=== PATIENT | male | born 1950 | race Caucasian/White ===

== ENCOUNTER 2022-01-12 12:30 | Outpatient (CLI) | payer MEDICARE, OTHER ==
[~2022-01-12 12:30] MED LIST: Iopamidol-370 76% 500 ML 1 ML ONE
== END 2022-01-12 12:31 | disposition home or self-care (01) ==
LOC: BICCT 12:30
PROVIDERS: ATTEND Physician Assistant Medical
DX: R19.7 Diarrhea, unspecified (principal); K62.89 Other specified diseases of anus and rectum; K57.30 Diverticulosis of large intestine without perforation or abscess without bleeding; K86.2 Cyst of pancreas; N40.0 Benign prostatic hyperplasia without lower urinary tract symptoms; K63.89 Other specified diseases of intestine
CPT/HCPCS: 74177; 82565; Q9967

== ENCOUNTER 2022-01-26 14:00 | Inpatient (IN) | payer MEDICARE, OTHER ==
[2022-01-28] MEDS ORDERED: SUGAMMADEX SODIUM 200 MG/2 ML VIAL ONE (12:40)
[2022-01-28] MEDS ORDERED: fentaNYL Citrate/PF 100 MCG/2 ML SYRINGE ONE ×3 (12:40→16:36)
[2022-01-28] MEDS ORDERED: Bupivacaine/Epinephrine 0.25% 30 ML VIAL ONE (12:48)
[2022-01-28] MEDS ORDERED: cefOXitin 2 GM VIAL ONE ×2 (12:55→15:06)
[2022-01-28] MEDS ORDERED: Sodium Chloride 0.9% 100 ML ONE (12:55)
[2022-01-28] MEDS ORDERED: Rocuronium Bromide 10 MG/ML (10ML VIAL) ONE (13:16)
[2022-01-28] MEDS ORDERED: Dexamethasone 20 MG/5 ML VIAL ONE (13:16)
[2022-01-28] MEDS ORDERED: Ondansetron PF 4 MG/2 ML Vial ONE (13:16)
[2022-01-28] MEDS ORDERED: PROPOFOL 200 MG/20 ML VIAL ONE (13:16)
[2022-01-28] MEDS ORDERED: Glycopyrrolate 0.2 MG/ML 5 ML SYRINGE ONE (13:16)
[2022-01-28] MEDS ORDERED: Neostigmine Methylsulfate 3 MG/3 ML SYRINGE ONE (13:16)
[2022-01-28] MEDS ORDERED: Lidocaine 1% PF 5 ML VIAL ONE (13:16)
[2022-01-28] MEDS ORDERED: Phenylephrine 10 MG/ML VIAL ONE (13:16)
[2022-01-28] MEDS ORDERED: Bupivacaine HCl 0.5%/Epinephrine 1:200,000/PF 30 ml Vial ONE (15:50)
[2022-01-28] MEDS ORDERED: Promethazine HCl 25 MG/ML VIAL IM PRN ×2 (16:03→17:27)
[2022-01-28] MEDS ORDERED: Fentanyl 100 MCG/2 ML VIAL SLOW IVP PRN ×2 (16:03→17:32)
[2022-01-28] MEDS ORDERED: Ondansetron PF 4 MG/2 ML Vial IVP PRN ×2 (16:03→17:27)
[2022-01-28] MEDS ORDERED: hydrALAZINE 20 MG/ML VIAL SLOW IVP PRN (16:03)
[2022-01-28] MEDS ORDERED: HYDROmorphone 0.5 MG/0.5 ML SYRINGE ONE ×2 (16:50→17:00)
[2022-01-28] MEDS ORDERED: diphenhydrAMINE 25 MG CAP PO PRN (17:27)
[2022-01-28] MEDS ORDERED: Naloxone HCl 0.4 mg/ml Vial IV PRN (17:27)
[2022-01-28] MEDS ORDERED: fentaNYL Citrate/PF 2,000 MCG in Sodium Chloride 0.9% 60 ML IV PRN (17:27)
[2022-01-28] MEDS ORDERED: diphenhydrAMINE 50 MG/ML VIAL IVP PRN (17:27)
[2022-01-28] MEDS ORDERED: diphenhydrAMINE 50 MG/ML VIAL IM PRN (17:27)
[2022-01-28] MEDS ORDERED: HYDROcodone/Acetaminophen 7.5/325 mg Tablet PO PRN (17:30)
[2022-01-28] MEDS ORDERED: Communication Order-Pharmacy FS SCH (17:30)
[2022-01-28] MEDS: D5 1/2 NS w/20 mEq KCL 1,000 ML IV SCH (18:49)
[2022-01-28 20:32] VITALS: BMI 20.8
[2022-01-28] MEDS: Famotidine/PF 20 mg/2ml Vial SLOW IVP SCH (21:28)
[2022-01-28] MEDS: Famotidine 20 MG TAB PO SCH (21:58)
[2022-01-28] MEDS: cefOXitin Sodium 1 GM in Sodium Chloride 0.9% 100 ML IVPB SCH (23:47)
[2022-01-29] MEDS: D5 1/2 NS w/20 mEq KCL 1,000 ML IV SCH ×3 (02:25→17:27)
[2022-01-29 07:28] LABS: #Lymphocytes 0.8 thou/uL (1.20-3.40); #Monocytes 1.1 thou/uL (0.11-0.59); #Neutrophils 9.2 thou/uL (1.40-6.50); %Basophils 0.2 % (0.0-1.0); %Eosinophils 0.1 % (0.0-10.0); %Lymphocytes 6.8 % (21.0-51.0); %Neutrophils 82.9 % (42.0-75.0); Hemoglobin 10.7 g/dL (14.0-18.0); Mean Corpuscular HGB CONC 32.4 g/dL (32.0-36.0); Mean Corpuscular Hemoglobin 27.6 pg (27.0-31.0); Mean Corpuscular Volume 85.3 fL (78.0-98.0); Mean Platelet Volume 8.1 fL (7.4-10.4); Platelet Count 190 thou/uL (130-400); RBC Distribution Width 12.8 % (11.5-14.5); Red Blood Cell (RBC) Count 3.89 mill/uL (4.70-6.10); White Blood Cell (WBC) Count 11.1 thou/uL (4.8-10.8)
[2022-01-29 07:50] LABS: Anion Gap 12 mmol/L (10-20); BUN (Urea Nitrogen) 15 mg/dL (8.4-25.7); Calc. Creatinine Clearance 80 mL/min (70-130); Calcium 7.7 mg/dL (7.8-10.44); Carbon Dioxide 26 mmol/L (23-31); Chloride 102 mmol/L (98-107); Estimated GFR 97; Glucose 164 mg/dL (80-115); Potassium 3.3 mmol/L (3.5-5.1); Sodium 137 mmol/L (136-145)
[2022-01-29] MEDS: cefOXitin Sodium 1 GM in Sodium Chloride 0.9% 100 ML IVPB SCH (09:07)
[2022-01-29] MEDS: Lisinopril/Hydrochlorothiazide 20 mg/12.5 mg Tablet PO SCH (09:07)
[2022-01-29] MEDS: Enoxaparin Sodium 40 MG/0.4 ML SYRINGE SC SCH (09:07)
[2022-01-29] MEDS: Famotidine 20 MG TAB PO SCH ×2 (09:08→20:13)
[2022-01-29] MEDS: Famotidine/PF 20 mg/2ml Vial SLOW IVP SCH ×2 (09:08→20:25)
[2022-01-29] MEDS ORDERED: Fentanyl 100 MCG/2 ML VIAL SLOW IVP PRN (14:11)
[2022-01-29] MEDS ORDERED: Acetaminophen 325 MG TAB PO PRN (16:01)
[2022-01-29] MEDS ORDERED: HYDROcodone/Acetaminophen 7.5/325 mg Tablet PO PRN (16:01)
[2022-01-29] MEDS: HYDROcodone/Acetaminophen 7.5/325 mg Tablet PO PRN ×2 (17:27→23:18)
[2022-01-29] MEDS ORDERED: Tamsulosin HCl 0.4 MG CAP PO SCH (19:45)
[2022-01-30] MEDS: HYDROcodone/Acetaminophen 7.5/325 mg Tablet PO PRN ×4 (05:10→23:13)
[2022-01-30] MEDS: D5 1/2 NS w/20 mEq KCL 1,000 ML IV SCH (05:11)
[2022-01-30] MEDS: Enoxaparin Sodium 40 MG/0.4 ML SYRINGE SC SCH (08:54)
[2022-01-30] MEDS: Famotidine/PF 20 mg/2ml Vial SLOW IVP SCH ×2 (08:54→20:15)
[2022-01-30] MEDS: Famotidine 20 MG TAB PO SCH ×2 (08:54→20:15)
[2022-01-30] MEDS: Lisinopril/Hydrochlorothiazide 20 mg/12.5 mg Tablet PO SCH (08:54)
[2022-01-30] MEDS: Tamsulosin HCl 0.4 MG CAP PO SCH (08:55)
[2022-01-30] MEDS ORDERED: Ibuprofen 100 MG/5 ML UDCUP PO PRN (10:18)
[2022-01-31] MEDS: HYDROcodone/Acetaminophen 7.5/325 mg Tablet PO PRN ×2 (05:05→11:26)
[2022-01-31 05:50] LABS: #Eosinphils 0.2 thou/uL (0.0-0.7); #Lymphocytes 0.9 thou/uL (1.20-3.40); #Monocytes 0.7 thou/uL (0.11-0.59); #Neutrophils 5.4 thou/uL (1.40-6.50); %Basophils 0.3 % (0.0-1.0); %Eosinophils 2.4 % (0.0-10.0); %Lymphocytes 12.4 % (21.0-51.0); %Monocytes 9.3 % (0.0-10.0); %Neutrophils 75.7 % (42.0-75.0); Hemoglobin 11.1 g/dL (14.0-18.0); Mean Corpuscular HGB CONC 33.3 g/dL (32.0-36.0); Mean Corpuscular Volume 84.3 fL (78.0-98.0); Mean Platelet Volume 8.3 fL (7.4-10.4); Platelet Count 169 thou/uL (130-400); RBC Distribution Width 12.7 % (11.5-14.5); Red Blood Cell (RBC) Count 3.97 mill/uL (4.70-6.10); White Blood Cell (WBC) Count 7.1 thou/uL (4.8-10.8)
[2022-01-31 06:26] LABS: Anion Gap 11 mmol/L (10-20); BUN (Urea Nitrogen) 5 mg/dL (8.4-25.7); Calc. Creatinine Clearance 90 mL/min (70-130); Calcium 8.3 mg/dL (7.8-10.44); Carbon Dioxide 30 mmol/L (23-31); Chloride 99 mmol/L (98-107); Estimated GFR 101; Glucose 110 mg/dL (80-115); Magnesium 1.6 mg/dL (1.6-2.6); Phosphorus 2.5 mg/dL (2.3-4.7); Potassium 3.1 mmol/L (3.5-5.1); Sodium 137 mmol/L (136-145)
[2022-01-31 08:04] VITALS: TEMP 97.7
[2022-01-31] MEDS ORDERED: Potassium Chloride 20 MEQ TAB PO SCH (08:45)
[2022-01-31] MEDS: Lisinopril/Hydrochlorothiazide 20 mg/12.5 mg Tablet PO SCH (09:48)
[2022-01-31] MEDS: Famotidine 20 MG TAB PO SCH (09:48)
[2022-01-31] MEDS: Tamsulosin HCl 0.4 MG CAP PO SCH (09:48)
[2022-01-31] MEDS: Enoxaparin Sodium 40 MG/0.4 ML SYRINGE SC SCH (09:48)
[2022-01-31] MEDS: Famotidine/PF 20 mg/2ml Vial SLOW IVP SCH (09:50)
[2022-01-31 11:34] VITALS: BP 159/87
== END 2022-01-31 14:15 | disposition home or self-care (01) | DRG 330 ==
LOC: SURG A 01-28 16:06 → SJJU 01-28 18:21
PROVIDERS: ADMIT Surgery; ATTEND Surgery
PROC: 0DTG4ZZ Resection of Left Large Intestine, Percutaneous Endoscopic Approach (ICD-10-PCS; principal; 2022-01-28)
DX: C18.7 Malignant neoplasm of sigmoid colon (principal); K56.1 Intussusception; I10 Essential (primary) hypertension; J30.9 Allergic rhinitis, unspecified; R33.8 Other retention of urine; Z20.822 Contact with and (suspected) exposure to COVID-19; Z98.890 Other specified postprocedural states; Z85.828 Personal history of other malignant neoplasm of skin; Z80.9 Family history of malignant neoplasm, unspecified; Z79.899 Other long term (current) drug therapy; Z82.49 Family history of ischemic heart disease and other diseases of the circulatory system; Z83.3 Family history of diabetes mellitus
CPT/HCPCS: 36415; 36416; 80048; 83036; 83735; 84100; 85025; 87811; 88309; 93005; 93010; A4649; J0694; J1100; J1170; J1650; J2370; J2405; J2704; J3480; J3490; S0028

== ENCOUNTER 2022-01-26 14:18 | Outpatient (CLI) | payer MEDICARE, OTHER ==
[2022-01-26 15:38] LABS: #Basophils 0.1 10x3/uL (0.0-0.2); #Eosinphils 0.6 10x3/uL (0.0-0.5); #Monocytes 0.7 10x3/uL (0.0-1.1); %Eosinophils 7.8 % (0.0-6.0); %Lymphocytes 18.5 % (18.0-47.0); %Monocytes 8.7 % (0.0-10.0); %Neutrophils 63.7 % (40.0-75.0); Hemoglobin 12.9 g/dL (13.5-17.5); Mean Corpuscular HGB CONC 33.9 g/dL (32.0-36.0); Mean Corpuscular Hemoglobin 27.3 pg (27.0-33.0); Mean Corpuscular Volume 80.3 fl (81.2-95.1); Platelet Count 306 10x3/uL (150-450); RBC Distribution Width 13.7 % (11.5-14.5); Red Blood Cell (RBC) Count 4.73 10x6/uL (4.32-5.72); White Blood Cell (WBC) Count 7.8 10x3/uL (3.5-10.5)
[2022-01-26 16:14] LABS: Anion Gap 13 mmol/L (10-20); BUN (Urea Nitrogen) 18 mg/dL (8.4-25.7); Calc. Creatinine Clearance 0 mL/min (70-130); Calcium 9.2 mg/dL (7.8-10.44); Carbon Dioxide 28 mmol/L (23-31); Chloride 104 mmol/L (98-107); Estimated GFR 94; Glucose 98 mg/dL (80-115); Potassium 3.3 mmol/L (3.5-5.1); Sodium 142 mmol/L (136-145)
[2022-01-26 20:02] LABS: Hemoglobin A1c 6.6 % (4.0-6.0)
== END 2022-01-26 14:19 | disposition home or self-care (01) ==
LOC: LABBT 14:18
PROVIDERS: ATTEND Surgery
DX: Z01.818 Encounter for other preprocedural examination (principal); Z20.822 Contact with and (suspected) exposure to COVID-19
CPT/HCPCS: 80048; 83036; 85025; 87811; 93005; 93010

== ENCOUNTER 2022-07-28 09:05 | Outpatient (CLI) | payer MEDICARE, OTHER | END 2022-07-28 09:06 | disposition home or self-care (01) | LOC: BICCT 09:05 | PROVIDERS: ATTEND Internal Medicine Gastroenterology | DX: K86.2 Cyst of pancreas (principal); N20.0 Calculus of kidney; N28.1 Cyst of kidney, acquired; K76.89 Other specified diseases of liver; K55.069 Acute infarction of intestine, part and extent unspecified; K44.9 Diaphragmatic hernia without obstruction or gangrene; Z98.890 Other specified postprocedural states; Z85.038 Personal history of other malignant neoplasm of large intestine | CPT/HCPCS: 74178; 82565; Q9967 ==

== ENCOUNTER 2023-11-15 09:03 | Outpatient (CLI) | payer MEDICARE, OTHER ==
[2023-11-15] MEDS ORDERED: Iopamidol 370 76% 100 ML VIAL ONE (09:18)
== END 2023-11-15 09:04 | disposition home or self-care (01) ==
LOC: CT 09:03
PROVIDERS: ATTEND Internal Medicine Gastroenterology
DX: C18.7 Malignant neoplasm of sigmoid colon (principal); D18.03 Hemangioma of intra-abdominal structures; K86.2 Cyst of pancreas
CPT/HCPCS: 74170; 82565; Q9967